=== PATIENT | male | born 2000 | race Caucasian/White ===

== ENCOUNTER 2018-02-12 16:34 | Emergency (ER) | payer MEDICAID ==
--- NOTE | 2018-02-12 17:03 | EDPHY ---
H & P Stated Complaint: R hand injury Time Seen by Provider: 02/12/18 17:04 HPI/ROS: HPI: This is a 18-year-old male who presents with Chief Complaint: Right hand injury Location: Right hand Quality: Injury Duration: 1 hr prior to arrival Signs and Symptoms: No bleeding, no radiation, no numbness, no weakness, no tingling, no incontinence, no decreased range of motion, + swelling, + pain, no fever Timing: Acute Severity: 01/23 Context: Patient is right-hand dominant, student at [employer], presents with accidentally hitting his right hand at the base of the 4th and the 5th digit on his bunk bed as he was trying to jump up into it. He has 2 torn ligaments in his right ankle and has been wearing a walking boot for the last week or so. Due to wearing the walking boot, he reports that he has some balance issues. He believes when he jumped up his foot slipped off of the bottom bunk causing him to hit his right hand on the avoid beam. He reports that he felt immediate, constant, moderate pain that was nonradiating in nature. Reports that he feels like there is a bump at the base of his 4th and 5th digit. Denies any paresthesias/radiation/decreased range of motion. Modifying Factors: None Comment: ROS: see HPI Constitutional: No fever, no chills, no weight loss Eyes: No blurred vision Respiratory: No shortness of breath, no cough Cardiovascular: No chest pain Gastrointestinal: No nausea, no vomiting no diarrhea Genitourinary: No dysuria Extremities: No myalgias Neurologic: No weakness, no numbness Skin: No rashes Hematologic: No bruising, no bleeding MEDICAL/SURGICAL/SOCIAL HISTORY: Medical history: Asthma, 2 torn ligaments in his right ankle Surgical history: Denies Social history: Student at [employer] CONSTITUTIONAL: Extremely polite and cooperative young adult white male, awake and alert, no obvious distress HEENT: Atraumatic and normocephalic. EXTREMITIES: 2/2 pulses, strength 5/5, right WRIST: Extension to 70, flexion to 80, radial deviation to 20 degree, ulnar deviation to 30, no scaphoid tenderness, no tenderness over ulnar styloid, no tenderness over radial styloid. mild deformity noted at the 4th metacarpal; tenderness to palpation over the area; DI P, PIP, MCP flexion and extension intact. Good light touch sensation. no clubbing, no cyanosis or edema. NEUROLOGICAL: no focal neuro deficits. GCS 15. SKIN: Warm and dry, no erythema. no rash. Good capillary refill. Source: Patient Exam Limitations: No limitations - Personal History Current Tetanus/Diphtheria Vaccine: Yes Current Tetanus Diphtheria and Acellular Pertussis (TDAP): Yes - Medical/Surgical History Hx Asthma: Yes Hx Chronic Respiratory Disease: No Hx Diabetes: No Hx Cardiac Disease: No Hx Renal Disease: No Hx Cirrhosis: No Hx Alcoholism: No Hx HIV/AIDS: No Hx Splenectomy or Spleen Trauma: No Other PMH: R ankle torn ligaments, asthma - Social History Smoking Status: Never smoked Constitutional: Initial Vital Signs Temperature (C) 37.3 C 02/12/18 16:38 Heart Rate 90 02/12/18 16:38 Respiratory Rate 16 02/12/18 16:38 Blood Pressure 147/99 H 02/12/18 16:38 O2 Sat (%) 94 02/12/18 16:38 O2 Delivery Mode Room Air Allergies/Adverse Reactions: Penicillins Allergy (Verified 02/12/18 16:37) Home Medications: Medication Instructions Recorded Ibuprofen 02/12/18 oxyCODONE/APAP 5/325 [Percocet 1 - 2 tab PO Q4H PRN #10 tab 02/12/18 5/325 (*)] Medical Decision Making - Diagnostics Imaging Results: Imaging Impressions Hand X-Ray 02/12/18 16:41 Impression: Transverse mildly displaced mid shaft right fourth metacarpal fracture. Procedures: Procedure: Splint placement. A right forearm volar splint was applied by the Emergency Room pump technician. After application of the splint I returned and re-examined the patient. The splint was adequately immobilizing the joint and distal to the splint the patient's circulation and sensation was intact. ED Course/Re-evaluation: Right hand x-ray my read via PAC shows transverse mildly displaced 4th metacarpal fracture. Percocet x1 given with adequate pain relief Forearm volar splint and sling placed with wrist in slight extension at 20. Hand surgery follow-up. Case management consult to organized follow-up is having difficulty getting into Orthopedics for his prior injury. No signs of neurovascular compromise/tenting of skin/compartment syndrome/ extremities and joints examined above and below area of concern and are neurovascularly intact. This patient was seen under the supervision of my secondary supervising physician. I evaluated care for this patient independently. Discussed this patient with Dr. Pedraza. Differential Diagnosis: Differential diagnosis includes but is not limited to radial fracture, ulnar fracture, metacarpal fracture, wrist dislocation, nerve injury, tendon injury. Departure - Departure Disposition: Home, Routine, Self-Care Clinical Impression: Fracture of fourth metacarpal bone of right hand Qualifiers: Encounter type: initial encounter Fracture type: closed Metacarpal location: shaft Fracture alignment: displaced Qualified Code(s): S62.324A - Displaced fracture of shaft of fourth metacarpal bone, right hand, initial encounter for closed fracture Condition: Good Instructions: Hand Fracture (ED), Splint Care (ED) Additional Instructions: Keep the splint dry and in place until seen by Orthopedics. Take Tylenol 650 mg every 4 hours and/or Ibuprofen 600 mg every 8 hours with food as needed for pain. Use Percocet every 6 hours as needed for severe/break through pain. Do not use Tylenol and Percocet concomitantly. Apply ice for 30 minutes at a time; 2-3 times per day for the next 1-2 days. Follow up with Orthopedics in 5-7 days at which time they will evaluate and recommend with you if conservative management versus surgery is indicated. Return to the ER immediately if you experience new or worsening pain, discoloration, numbness, tingling, or any other symptoms that concern you. Referrals: BECKY GARNER [Other] - As per Instructions Johann Hooks MD [Medical Doctor] - As per Instructions Prescriptions: oxyCODONE/APAP 5/325 [Percocet 5/325 (*)] 1 - 2 tab PO Q4H PRN #10 tab PRN Reason: Pain, Severe
[2018-02-12] MEDS ORDERED: OXYCODONE/APAP 5/325 TAB PO ONE (17:04)
[2018-02-12 17:49] VITALS: BP 135/96
--- NOTE | 2018-02-18 15:22 | ASMTCMCOM ---
CM Note CM Note Notes: Late Entry from 02/12/18: Requested to assist patient with getting an orthopedic follow-up for his right hand injury. Also asked to assist pt w/getting in w/customer experience specialist for a right ankle injury that occurred a few weeks ago. This CM followed up w/pt on 02/13/18 and he was able to get an appt w/Dr Hooks on 02/17/18 for evaluation of his right hand. Pt was not seen in an ED for his right ankle injury but had followed up with his PCP Rocky Whyte at [facility] and was reportedly being referred but the process was taking longer than expected and the patient said he kept being told he would receive a call but he hasn't. This CM called and spoke w/Yumi who was able to connect with their employee relations specialist and confirm that pt was referred to [facility] in [place] and has an appt on 03/04/18. Spoke w/pt and we agreed that it would be good for him to follow up with Rocky Whyte this week to get re-evaluated and consider PT/OT and make sure he is aware pt is unable to get into an ortho specialist until almost 6 weeks after his initial injury. --Follow-up on 02/18/18: Spoke w/ Jessica at and confirmed pt made it to his appt w/Rocky Whyte and is receiving various assistance w/follow-up for his right ankle. CM available for further assistance if needed. Date Signed: 02/18/2018 03:22 PM Electronically Signed By:Rebekah Mckeon RN
== END 2018-02-12 17:49 | disposition home or self-care (01) ==
PROC: 2W38X1Z Immobilization of Right Upper Extremity using Splint (ICD-10-PCS; principal; 2018-02-12)
DX: S62.324A Displaced fracture of shaft of fourth metacarpal bone, right hand, initial encounter for closed fracture (principal); W06.XXXA Fall from bed, initial encounter; Y93.39 Activity, other involving climbing, rappelling and jumping off; Y92.163 Bedroom in school dormitory as the place of occurrence of the external cause
CPT/HCPCS: A4565

== ENCOUNTER 2018-03-05 09:08 | Day surgery (SDC) | payer MEDICAID ==
--- NOTE | 2018-03-04 19:09 | PDGENHP ---
History & Physical Chief Complaint: Right ring finger metacarpal fracture History of Present Illness: Rohan is a pleasant 18 year old male who sustained a right ring finger metacarpal fracture with angulation and rotation when he fell on 02/12/18. He has failed percutaneous fixation and is now requiring ORIF right ring finger metacarpal fracture Pertinent Past, Social, Family History: PMH: Non-contributory. SH: non- contributory. FH: non-contributory Relevant Physical Exam: Right ring finger with c-wires in place. No erythema or warmth. TTP overying the metacarpal shaft and palpable deformity. Radial deviation of the ring finger with flexion. NV intact Cardiorespiratory Assessment: RRR, CTAB
[2018-03-05] MEDS ORDERED: CLINDAMYCIN 900 MG/DEXTROSE 50 ML IV ONE (09:27)
[2018-03-05] MEDS ORDERED: fentaNYL 100 MCG/2 ML INJ ONE ×2 (10:24→12:18)
[2018-03-05] MEDS ORDERED: PROPOFOL 200 MG/20 ML VIAL ONE ×2 (10:24→11:22)
[2018-03-05] MEDS ORDERED: MIDAZOLAM 2 MG/2 ML VIAL IVP ONE (10:26)
[2018-03-05] MEDS ORDERED: ONDANSETRON 4 MG/2 ML VIAL IVP PRN (10:52)
[2018-03-05] MEDS ORDERED: MEPERIDINE 25 MG/0.5 ML AMP IVP PRN (10:52)
[2018-03-05] MEDS ORDERED: ALBUTEROL 3 ML DEYVIAL IH PRN (10:52)
[2018-03-05] MEDS ORDERED: PROMETHAZINE HCL 25 MG/ML INJ IVP PRN (10:52)
[2018-03-05] MEDS ORDERED: NS 500 ML IV PRN (10:52)
[2018-03-05] MEDS ORDERED: LR 500 ML IV PRN (10:52)
[2018-03-05] MEDS ORDERED: HYDROCODONE/APAP 5/325 TAB PO PRN (10:52)
[2018-03-05] MEDS ORDERED: HYDROmorphONE/DILAUDID 2 MG/ML INJ IVP PRN (10:52)
[2018-03-05] MEDS ORDERED: LABETALOL HCL 5 MG/ML 20 ML MDV IVP PRN (10:52)
[2018-03-05] MEDS ORDERED: NALOXONE HCL 0.4 MG/ML INJ IVP PRN (10:52)
--- NOTE | 2018-03-05 10:52 | PDANEPAE ---
ANE Past Medical History - Cardiovascular History Hx Hypertension: No Hx Arrhythmias: No Hx Chest Pain: No Hx Coronary Artery / Peripheral Vascular Disease: No Hx CHF / Valvular Disease: No Hx Palpitations: No - Pulmonary History Hx COPD: No Hx Asthma/Reactive Airway Disease: Yes Hx Recent Upper Respiratory Infection: No Hx Oxygen in Use at Home: No Hx Sleep Apnea: No Sleep Apnea Screening Result - Last Documented: Negative Pulmonary History Comment: no asthma currently - Neurologic History Hx Cerebrovascular Accident: No Hx Seizures: No Hx Dementia: No - Endocrine History Hx Diabetes: No - Renal History Hx Renal Disorders: No - Liver History Hx Hepatic Disorders: No - Neurological & Psychiatric Hx Hx Neurological and Psychiatric Disorders: No - Cancer History Hx Cancer: No - Congenital Disorder History Hx Congenital Disorders: No - GI History Hx Gastrointestinal Disorders: No - Other Health History Other Health History: wears glasses/ contacts. torn ligaments to right ankle as well - Chronic Pain History Chronic Pain: Yes (right hand and right ankle) - Surgical History Prior Surgeries: right 3rd finger ORIF 02/20/18- rebroke ANE Review of Systems Review of Systems: - Exercise capacity METS (RN): 4 METS ANE Patient History - Allergies Allergies/Adverse Reactions: Penicillins Allergy (Verified 03/04/18 10:40) unknown- was told he is allergic - Home Medications Home Medications: oxyCODONE/APAP 5/325 [Percocet 5/325 (*)] PRN 03/04/18 [Last Taken 03/04/18] - NPO status NPO Since - Liquids (Date): 03/04/18 NPO Since - Liquids (Time): 23:00 NPO Since - Solids (Date): 03/04/18 NPO Since - Solids (Time): 19:30 - Smoking Hx Smoking Status: Former smoker - Family Anes Hx Family Hx Anesthesia Complications: none ANE Labs/Vital Signs - Vital Signs Blood Pressure: 141/79 Heart Rate: 68 Respiratory Rate: 18 O2 Sat (%): 95 Height: 175.26 cm Weight: 65.771 kg ANE Physical Exam - Airway Mallampati Score: Class 1 Mouth exam: normal dental/mouth exam - Pulmonary Pulmonary: no respiratory distress - Cardiovascular Cardiovascular: regular rate and rhythym - ASA Status ASA Status: II ANE Anesthesia Plan Anesthesia Plan: GA w LMA
[2018-03-05] MEDS ORDERED: BUPIVACAINE 0.5% 30 ML SDV ONE (10:53)
[2018-03-05] MEDS ORDERED: KETOROLAC 30 MG/1 ML SDV ONE (11:22)
[2018-03-05] MEDS ORDERED: DEXAMETHASONE 4 MG/ML VIAL ONE (11:22)
[2018-03-05] MEDS ORDERED: ONDANSETRON 4 MG/2 ML VIAL ONE (11:22)
[2018-03-05] MEDS ORDERED: METOCLOPRAMIDE 10 MG/2 ML VIAL ONE (11:22)
[2018-03-05] MEDS ORDERED: HYDROCODONE/APAP 5/325 TAB ONE (12:18)
[2018-03-05] MEDS: fentaNYL 100 MCG/2 ML INJ IVP PRN ×2 (12:20→12:28)
[2018-03-05 13:02] VITALS: BP 129/82
--- NOTE | 2018-03-05 13:08 | GOP ---
DATE OF OPERATION: 03/05/2018 SURGEON: Johann Hooks MD ANESTHESIA: General. ANESTHESIOLOGIST: Citlali Agrawal MD. PREOPERATIVE DIAGNOSIS: Displaced 4th metacarpal shaft fracture, right hand. POSTOPERATIVE DIAGNOSIS: Displaced 4th metacarpal shaft fracture, right hand. PROCEDURE PERFORMED: 1. Hardware removal, 4th metacarpal. 2. Open reduction, internal fixation, 4th metacarpal, right hand. FINDINGS: ESTIMATED BLOOD LOSS: Minimal. INDICATIONS: The patient is a 18-year-old male who fell, sustained a metacarpal fracture. I pinned this, loss of reduction. Decision was made to return to the operating room and place a plate with rem oval of the 2 K-wires. DESCRIPTION OF PROCEDURE: After appropriate informed consent was obtained, patient was taken to the operating room, placed supine on the operating table. Time-out was performed. Patient was identified. Correct site was identified and matched with radiographs available in the room. He received 2 g of A ncef preoperatively. Following the induction of general endotracheal tube anesthesia, the right upper extremity was prepped and draped in the usual sterile fashion. I exsanguinated the limb, inflated th e tourniquet to 250 mmHg. I made a dorsal ulnarly based incision being careful to dissect and protect the neurovascular bundle as well as the extensor tendon. The fracture was identified. Hardware was r emoved. The fracture was reduced. A 6-hole 2.0 mm plate was held in place and then attached to the alex ne with a series of compression screws securely affixing the fracture back, getting no crossover defo rmity. We made a fist with his hand. Brisk capillary refill to the tip of the finger after the tourni quet had been let down. Wound was irrigated. Skin was closed with 3-0 nylon. I instilled 10 mL of 0.5 % Marcaine plain around the incision. An ulnar gutter splint was applied. Patient was awakened from a nesthesia, taken to the recovery room in satisfactory condition. There were no immediate intraoperati ve complications. TOTAL TOURNIQUET TIME: 29 minutes at 250 mmHg. /[id number]/MODL
--- NOTE | 2018-03-06 07:59 | POSTANESTH ---
Post Anesthetic Evaluation Cardiovascular Status: Normal, Stable Respiratory Status: Normal, Stable Level of Consciousness/Mental Status: Can Participate in Eval Pain Control: Adequate, Prn Tx Ordered Nausea/Vomiting Control: Adequate, Prn Tx Ordered Complications Possibly Related to Anesthesia: None Noted
== END 2018-03-05 13:25 | disposition home or self-care (01) ==
LOC: FSGY 09:08
PROVIDERS: ATTEND Orthopaedic Surgery
PROC: 0PSP04Z Reposition Right Metacarpal with Internal Fixation Device, Open Approach (ICD-10-PCS; principal; 2018-03-05 10:30)
DX: S62.324A Displaced fracture of shaft of fourth metacarpal bone, right hand, initial encounter for closed fracture (principal); W06.XXXA Fall from bed, initial encounter; Y93.39 Activity, other involving climbing, rappelling and jumping off; Y92.163 Bedroom in school dormitory as the place of occurrence of the external cause
CPT/HCPCS: C1713; J1100; J1885; J2250; J2405; J2704; J2765; J3010